=== PATIENT | male | born 1980 | race Caucasian/White ===

== ENCOUNTER 2024-07-29 07:35 | Day surgery (SDC) | payer BC ==
[2024-07-24 15:10] VITALS: BMI 34.9
[2024-07-29] MEDS ORDERED: PROPOFOL 60 ML ONE (09:09)
[2024-07-29] MEDS ORDERED: Simethicone 40 MG/0.6 ML Drop 30 ML BOT ONE (09:40)
== END 2024-07-29 10:36 | disposition home or self-care (01) ==
LOC: CSHSDC 07:35
PROVIDERS: ATTEND Surgery
PROC: 0DBN8ZZ Excision of Sigmoid Colon, Via Natural or Artificial Opening Endoscopic (ICD-10-PCS; principal; 2024-07-29)
DX: Z12.11 Encounter for screening for malignant neoplasm of colon (principal); K63.5 Polyp of colon; M10.9 Gout, unspecified; Z98.890 Other specified postprocedural states; Z79.899 Other long term (current) drug therapy; Z79.51 Long term (current) use of inhaled steroids
CPT/HCPCS: 88305; J2704